=== PATIENT | male | born 1990 | race African-American/Black ===

== ENCOUNTER 2016-11-13 15:29 | Emergency (ER) | payer OTHER ==
[2016-11-13 15:34] VITALS: BP 133/89
[2016-11-13] MEDS ORDERED: IBUPROFEN 800 MG TABLET PO ONE (16:58)
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
== END 2016-11-13 18:29 | disposition home or self-care (01) ==
LOC: ER 15:29
DX: S39.012A Strain of muscle, fascia and tendon of lower back, initial encounter (principal); S50.02XA Contusion of left elbow, initial encounter; W19.XXXA Unspecified fall, initial encounter; Y93.67 Activity, basketball; F17.200 Nicotine dependence, unspecified, uncomplicated
CPT/HCPCS: 99283

== ENCOUNTER 2017-01-26 07:48 | Emergency (ER) | payer OTHER ==
[2017-01-26] MEDS ORDERED: KETOROLAC TROMETHAMINE 60 MG/2 ML SDV IM ONE (09:19)
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
[2017-01-26 09:34] VITALS: BP 145/87
== END 2017-01-26 09:35 | disposition home or self-care (01) ==
LOC: ER 07:48
DX: G89.29 Other chronic pain (principal); M79.662 Pain in left lower leg; S81.802S Unspecified open wound, left lower leg, sequela; W34.00XS Accidental discharge from unspecified firearms or gun, sequela; R03.0 Elevated blood-pressure reading, without diagnosis of hypertension; F17.200 Nicotine dependence, unspecified, uncomplicated; Z87.828 Personal history of other (healed) physical injury and trauma; Z82.49 Family history of ischemic heart disease and other diseases of the circulatory system
CPT/HCPCS: 99283; 96372; J1885

== ENCOUNTER 2017-06-16 13:06 | Emergency (ER) | payer OTHER ==
--- NOTE | 2017-06-16 14:31 | RADIOLOGY REPORT (SQ) ---
EXAM DESCRIPTION: FOOT LEFT COMPLETE COMPLETED DATE/TIME: 06/16/2017 2:10 pm REASON FOR STUDY: pain COMPARISON: None. NUMBER OF VIEWS: Three views. TECHNIQUE: AP, lateral and oblique radiographic images acquired of the left foot. LIMITATIONS: None. FINDINGS: MINERALIZATION: Normal. BONES: No acute fracture or dislocation. No worrisome bone lesions. JOINTS: No effusions. SOFT TISSUES: Diffuse forefoot soft tissue swelling. No foreign body. OTHER: No other significant finding. IMPRESSION: Forefoot soft tissue swelling. No acute fracture TECHNICAL DOCUMENTATION: JOB ID: [id number] [employer]- All Rights Reserved
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
[2017-06-16 14:50] VITALS: BP 145/87
== END 2017-06-16 14:49 | disposition home or self-care (01) ==
LOC: ER 13:06
DX: S93.602A Unspecified sprain of left foot, initial encounter (principal); X58.XXXA Exposure to other specified factors, initial encounter; R60.0 Localized edema; F17.200 Nicotine dependence, unspecified, uncomplicated
CPT/HCPCS: 99283

== ENCOUNTER 2017-12-11 21:45 | Emergency (ER) | payer OTHER ==
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
[2017-12-11 22:16] VITALS: BP 111/94
== END 2017-12-11 22:12 | disposition home or self-care (01) ==
LOC: ER 21:45
DX: F10.920 Alcohol use, unspecified with intoxication, uncomplicated (principal); F17.200 Nicotine dependence, unspecified, uncomplicated
CPT/HCPCS: 99284